=== PATIENT | male | born 1940 | race Caucasian/White ===

== ENCOUNTER 2021-01-12 08:12 | Outpatient (REF) | payer MEDICARE, OTHER, SELFPAY ==
[2021-01-12 09:56] LABS: Alanine Aminotransferase 22 U/L (0-40); Albumin Level 4.5 g/dL (3.5-5.0); Alkaline Phosphatase 64 U/L (39-117); Anion Gap 11 (12-20); Aspartate Amino Transferase 45 U/L (5-37); Bilirubin Total 0.7 mg/dL (0.0-1.0); Blood Urea Nitrogen 33 mg/dL (9-16); Calcium 9.4 mg/dL (8.4-10.2); Carbon Dioxide 31 mmol/L (22-29); Chloride 103 mmol/L (96-108); Estimated Glomerular Filt Rate 53; Glucose Random 92 mg/dL (60-115); Potassium 4.4 mmol/L (3.3-5.1); Sodium 141 mmol/L (135-145); Total Protein 7.5 g/dL (6.5-8.0)
== END 2021-01-12 08:13 | disposition home or self-care (01) ==
LOC: HO.LAB 08:12
PROVIDERS: PCP Internal Medicine; Visit Provider Internal Medicine
DX: K21.9 Gastro-esophageal reflux disease without esophagitis (principal); J45.909 Unspecified asthma, uncomplicated; R79.82 Elevated C-reactive protein (CRP)
CPT/HCPCS: 36415; 80053

== ENCOUNTER 2021-05-31 14:05 | Outpatient (REF) | payer MEDICARE, OTHER, SELFPAY ==
[2021-05-31 14:37] LABS: MANUAL DIFF FLAG NO
[2021-05-31 14:41] LABS: Basophils Percent Auto 0.5 % (0-2); Eosinophils Absolute Auto 0.2 X10*3/uL (0.0-0.4); Eosinophils Percent Auto 2.7 % (0-4); Hematocrit 45.3 % (42-52); Hemoglobin 14.5 g/dl (14.0-18.0); Imm Gran Abs Auto 0.01 X10*3/uL (0.00-0.03); Imm Gran Pct Auto 0.1 % (0.0-0.4); Lymphocytes Absolute Auto 2.3 X10*3/uL (1.2-4.9); Lymphocytes Percent Auto 27.2 % (20-40); Mean Corpuscular Hemoglobin 30.9 pg (27.0-33.0); Mean Corpuscular Volume 96.6 fL (80-98); Mean Platelet Volume 9.6 fL (9.4-12.4); Monocytes Absolute Auto 0.9 X10*3/uL (0.1-1.2); Monocytes Percent Auto 10.4 % (2-11); Neutrophils Absolute Auto 4.9 X10*3/uL (2.0-8.3); Neutrophils Percent Auto 59.1 % (45-73); Platelet Count 223 X10*3/uL (160-400); Red Blood Count 4.69 X10*6/uL (4.60-5.80); Red Cell Distribution Width 14.2 % (11.0-16.0); White Blood Count 8.3 X10*3/uL (4.8-10.8)
[2021-05-31 15:00] LABS: Anion Gap 13 (12-20); Blood Urea Nitrogen 26 mg/dL (9-16); Calcium 9.3 mg/dL (8.4-10.2); Carbon Dioxide 28 mmol/L (22-29); Chloride 106 mmol/L (96-108); Cholesterol 182 mg/dL; Estimated Glomerular Filt Rate 50; Glucose Random 104 mg/dL (60-115); Potassium 4.6 mmol/L (3.3-5.1); Sodium 142 mmol/L (135-145)
[2021-05-31 15:21] LABS: Prostate Specific Antigen 0.98 ng/mL (<0.05-4.0)
== END 2021-05-31 14:06 | disposition home or self-care (01) ==
LOC: HO.LAB 14:05
PROVIDERS: PCP Internal Medicine; Visit Provider Internal Medicine
DX: Z12.5 Encounter for screening for malignant neoplasm of prostate (principal); K21.9 Gastro-esophageal reflux disease without esophagitis; R35.1 Nocturia; N18.9 Chronic kidney disease, unspecified; J45.909 Unspecified asthma, uncomplicated
CPT/HCPCS: 36415; 80048; 82465; 84153; 85025

== ENCOUNTER 2021-12-29 10:46 | Outpatient (REF) | payer MEDICARE, OTHER, SELFPAY ==
[2021-12-29 11:12] LABS: MANUAL DIFF FLAG NO
[2021-12-29 12:07] LABS: Basophils Percent Auto 0.5 % (0-2); Eosinophils Absolute Auto 0.2 X10*3/uL (0.0-0.4); Eosinophils Percent Auto 2.7 % (0-4); Hematocrit 45.2 % (42.0-52.0); Hemoglobin 14.8 g/dl (14.0-18.0); Imm Gran Abs Auto 0.01 X10*3/uL (0.00-0.03); Imm Gran Pct Auto 0.2 % (0.0-0.4); Lymphocytes Absolute Auto 1.6 X10*3/uL (1.2-4.9); Lymphocytes Percent Auto 25.1 % (20-40); Mean Corpuscular HGB Conc 32.7 g/dl (31.0-36.0); Mean Corpuscular Hemoglobin 31.4 pg (27.0-33.0); Mean Corpuscular Volume 95.8 fL (80.0-98.0); Monocytes Absolute Auto 0.8 X10*3/uL (0.1-1.2); Monocytes Percent Auto 12.2 % (2-11); Neutrophils Absolute Auto 3.7 x10*3/uL (2.0-8.3); Neutrophils Percent Auto 59.3 % (45-73); Platelet Count 246 X10*3/uL (160-400); Red Blood Count 4.72 X10*6/uL (4.60-5.80); Red Cell Distribution Width 13.5 % (11.0-16.0); White Blood Count 6.2 X10*3/uL (4.8-10.8)
[2021-12-29 13:38] LABS: Anion Gap 9 (12-20); Carbon Dioxide 31 mmol/L (22-29); Chloride 105 mmol/L (96-108); Estimated Glomerular Filt Rate 52; Potassium 4.4 mmol/L (3.3-5.1); Sodium 141 mmol/L (135-145)
[2021-12-29 17:10] LABS: Blood Urea Nitrogen 23 mg/dL (9-16); Calcium 10.2 mg/dL (8.4-10.2); Glucose Random 94 mg/dL (60-115)
== END 2021-12-29 10:47 | disposition home or self-care (01) ==
LOC: HO.LAB 10:46
PROVIDERS: PCP Internal Medicine; Visit Provider Internal Medicine
DX: K21.9 Gastro-esophageal reflux disease without esophagitis (principal); N18.9 Chronic kidney disease, unspecified
CPT/HCPCS: 36415; 80048; 85025

== ENCOUNTER 2022-08-09 10:52 | Outpatient (REF) | payer MEDICARE, OTHER, SELFPAY ==
[2022-08-09 11:09] LABS: MANUAL DIFF FLAG NO
[2022-08-09 11:16] LABS: Basophils Absolute Auto 0.1 X10*3/uL (0.0-0.2); Basophils Percent Auto 0.6 % (0-2); Eosinophils Absolute Auto 0.1 X10*3/uL (0.0-0.4); Eosinophils Percent Auto 1.5 % (0-4); Hematocrit 43.8 % (42.0-52.0); Imm Gran Abs Auto 0.02 X10*3/uL (0.00-0.03); Imm Gran Pct Auto 0.2 % (0.0-0.4); Lymphocytes Absolute Auto 1.6 X10*3/uL (1.2-4.9); Lymphocytes Percent Auto 18.9 % (20-40); Mean Corpuscular Hemoglobin 30.5 pg (27.0-33.0); Mean Corpuscular Volume 95.4 fL (80.0-98.0); Mean Platelet Volume 9.3 fL (9.4-12.4); Monocytes Percent Auto 11.7 % (2-11); Neutrophils Absolute Auto 5.8 x10*3/uL (2.0-8.3); Neutrophils Percent Auto 67.1 % (45-73); Platelet Count 226 X10*3/uL (160-400); Red Blood Count 4.59 X10*6/uL (4.60-5.80); Red Cell Distribution Width 14.6 % (11.0-16.0); White Blood Count 8.6 X10*3/uL (4.8-10.8)
[2022-08-09 13:08] LABS: Alanine Aminotransferase 19 U/L (0-40); Albumin Level 4.4 g/dL (3.5-5.0); Alkaline Phosphatase 72 U/L (39-117); Anion Gap 15 (12-20); Aspartate Amino Transferase 23 U/L (5-37); Bilirubin Total 0.7 mg/dL (0.0-1.0); Blood Urea Nitrogen 32 mg/dL (9-16); Calcium 9.9 mg/dL (8.4-10.2); Carbon Dioxide 27 mmol/L (22-29); Chloride 105 mmol/L (96-108); Cholesterol 173 mg/dL; Estimated Glomerular Filt Rate 47; Glucose Random 100 mg/dL (60-115); Potassium 4.3 mmol/L (3.3-5.1); Sodium 143 mmol/L (135-145); Total Protein 7.2 g/dL (6.5-8.0)
[2022-08-09 13:16] LABS: Prostate Specific Antigen Scr 0.88 ng/mL (<0.05-4.0)
== END 2022-08-09 10:53 | disposition home or self-care (01) ==
LOC: HO.LAB 10:52
PROVIDERS: PCP Internal Medicine; Visit Provider Internal Medicine
DX: Z12.5 Encounter for screening for malignant neoplasm of prostate (principal); K21.9 Gastro-esophageal reflux disease without esophagitis; N18.9 Chronic kidney disease, unspecified; R35.1 Nocturia
CPT/HCPCS: 36415; 80053; 82465; 84153; 85025

== ENCOUNTER 2022-11-23 10:37 | Outpatient (REF) | payer MEDICARE, OTHER, SELFPAY ==
[2022-11-23 11:48] LABS: Anion Gap 13 (12-20); Blood Urea Nitrogen 29 mg/dL (9-16); Calcium 9.7 mg/dL (8.4-10.2); Carbon Dioxide 29 mmol/L (22-29); Chloride 104 mmol/L (96-108); Estimated Glomerular Filt Rate 45; Glucose Random 115 mg/dL (60-115); Potassium 4.5 mmol/L (3.3-5.1); Sodium 141 mmol/L (135-145)
== END 2022-11-23 10:38 | disposition home or self-care (01) ==
LOC: HO.LAB 10:37
PROVIDERS: PCP Internal Medicine; Visit Provider Internal Medicine
DX: Z13.89 Encounter for screening for other disorder (principal)
CPT/HCPCS: 36415; 80048

== ENCOUNTER 2023-03-01 10:15 | Outpatient (REF) | payer MEDICARE, OTHER, SELFPAY ==
[2023-03-01 11:56] LABS: Anion Gap 10 (12-20); Blood Urea Nitrogen 31 mg/dL (9-16); Calcium 9.5 mg/dL (8.4-10.2); Carbon Dioxide 31 mmol/L (22-29); Chloride 106 mmol/L (96-108); Estimated Glomerular Filt Rate 53; Glucose Random 82 mg/dL (60-115); Sodium 143 mmol/L (135-145)
== END 2023-03-01 10:16 | disposition home or self-care (01) ==
LOC: HO.LAB 10:15
PROVIDERS: PCP Internal Medicine; Visit Provider Internal Medicine
DX: K21.9 Gastro-esophageal reflux disease without esophagitis (principal); N18.9 Chronic kidney disease, unspecified
CPT/HCPCS: 36415; 80048

== ENCOUNTER 2023-10-04 10:32 | Outpatient (REF) | payer MEDICARE, OTHER, SELFPAY ==
[2023-10-04 10:45] LABS: MANUAL DIFF FLAG NO
[2023-10-04 11:43] LABS: Basophils Percent Auto 0.5 % (0-2); Eosinophils Absolute Auto 0.2 X10*3/uL (0.0-0.4); Eosinophils Percent Auto 2.9 % (0-4); Hematocrit 46.2 % (42.0-52.0); Hemoglobin 14.8 g/dl (14.0-18.0); Imm Gran Abs Auto 0.01 X10*3/uL (0.00-0.03); Imm Gran Pct Auto 0.2 % (0.0-0.4); Lymphocytes Absolute Auto 1.6 X10*3/uL (1.2-4.9); Lymphocytes Percent Auto 27.4 % (20-40); Mean Corpuscular Volume 96.7 fL (80.0-98.0); Mean Platelet Volume 9.9 fL (9.4-12.4); Monocytes Absolute Auto 0.8 X10*3/uL (0.1-1.2); Monocytes Percent Auto 13.7 % (2-11); Neutrophils Absolute Auto 3.3 x10*3/uL (2.0-8.3); Neutrophils Percent Auto 55.3 % (45-73); Platelet Count 252 X10*3/uL (160-400); Red Blood Count 4.78 X10*6/uL (4.60-5.80); Red Cell Distribution Width 13.6 % (11.0-16.0); White Blood Count 5.9 X10*3/uL (4.8-10.8)
[2023-10-04 12:11] LABS: Appearance Urine Clear; Color Urine Yellow; Glucose Urine UA Negative (Negative); Leukocyte Esterase Urine Negative (Negative); Nitrite Urine Negative (Negative); PH 5.5 (5.0-9.0); Specific Gravity - Urine 1.015 (1.005-1.025); Urine Blood Negative (Negative); Urine Ketones Negative (Negative); Urine Protein Negative (Neg-Trace)
[2023-10-04 12:19] LABS: Alanine Aminotransferase 22 U/L (0-40); Albumin Level 4.6 g/dL (3.5-5.0); Alkaline Phosphatase 76 U/L (39-117); Anion Gap 12 (12-20); Aspartate Amino Transferase 21 U/L (5-37); Bilirubin Total 0.6 mg/dL (0.0-1.0); Blood Urea Nitrogen 30 mg/dL (9-16); Carbon Dioxide 31 mmol/L (22-29); Chloride 104 mmol/L (96-108); Estimated Glomerular Filt Rate 52; Glucose Random 93 mg/dL (60-115); Potassium 4.2 mmol/L (3.3-5.1); Sodium 143 mmol/L (135-145); Total Protein 7.9 g/dL (6.5-8.0)
[2023-10-04 12:30] LABS: Prostate Specific Antigen 0.99 ng/mL (<0.05-4.0)
== END 2023-10-04 10:33 | disposition home or self-care (01) ==
LOC: HO.LAB 10:32
PROVIDERS: PCP Internal Medicine; Visit Provider Internal Medicine
DX: Z13.89 Encounter for screening for other disorder (principal)
CPT/HCPCS: 36415; 80053; 81003; 84153; 85025

== ENCOUNTER 2024-05-13 07:56 | Outpatient (REF) | payer MEDICARE, OTHER, SELFPAY ==
[2024-05-13 08:09] LABS: MANUAL DIFF FLAG NO
[2024-05-13 08:41] LABS: Basophils Absolute Auto 0.1 X10*3/uL (0.0-0.2); Basophils Percent Auto 0.8 % (0-2); Eosinophils Absolute Auto 0.3 X10*3/uL (0.0-0.4); Eosinophils Percent Auto 3.4 % (0-4); Hematocrit 43.6 % (42.0-52.0); Hemoglobin 14.4 g/dl (14.0-18.0); Imm Gran Abs Auto 0.02 X10*3/uL (0.00-0.03); Imm Gran Pct Auto 0.3 % (0.0-0.4); Lymphocytes Percent Auto 27.4 % (20-40); Mean Corpuscular Hemoglobin 31.4 pg (27.0-33.0); Mean Corpuscular Volume 95.2 fL (80.0-98.0); Mean Platelet Volume 9.6 fL (9.4-12.4); Monocytes Absolute Auto 0.7 X10*3/uL (0.1-1.2); Monocytes Percent Auto 10.1 % (2-11); Neutrophils Absolute Auto 4.3 x10*3/uL (2.0-8.3); Platelet Count 226 X10*3/uL (160-400); Red Blood Count 4.58 X10*6/uL (4.60-5.80); Red Cell Distribution Width 13.9 % (11.0-16.0); White Blood Count 7.3 X10*3/uL (4.8-10.8)
[2024-05-13 09:00] LABS: Cholesterol 178 mg/dL (<200)
== END 2024-05-13 07:57 | disposition home or self-care (01) ==
LOC: HO.LAB 07:56
PROVIDERS: PCP Internal Medicine; Visit Provider Internal Medicine
DX: K21.9 Gastro-esophageal reflux disease without esophagitis (principal); N18.9 Chronic kidney disease, unspecified; J31.0 Chronic rhinitis; Z12.5 Encounter for screening for malignant neoplasm of prostate
CPT/HCPCS: 36415; 82465; 84153; 85025

== ENCOUNTER 2025-10-29 13:00 | Outpatient (AMB) | payer MEDICARE, OTHER, SELFPAY ==
--- NOTE | 2025-10-29 13:03 | A.OFFPC_ITS ---
Vital Signs 10/29/25 13:05 Height 5 ft 2 in Weight 103 lb BMI 18.8 BP 128/72 Blood Pressure Location Rt brachial Position Sitting Pulse 78 Pulse Source Pulse Oximeter Temp 98.2 F Temp Source Temporal Artery Scan Pulse Oximetry (%) 97 Oxygen Delivery Method Room Air Intake Visit Reasons: Re-establish Care/CARIE Croke/[employer] Sdet Required: No Accompanied by: Self / Same As Patient Allergies No Known Allergies Allergy (Verified 10/29/25 13:03) Medication List - Last Reconciled 10/29/25 by Douglas Moore MD No Known Home Meds Tobacco use date assessed: 10/29/25 Fall risk assessment: No Falls in past year Last assessed Fall Risk: 10/29/25 Dental Screening Dental Screen Date: 10/29/25 Did you have a dental visit in the last 12 months?: No Did you have a dental problem in the last 6 months where you did not have access to dental care?: No HPI HPI Comments History of Present Illness Details History of Present Illness The patient is an 84-year-old male presenting for a new patient visit for establishment of care. He does not report any known medical conditions. Past surgical history is notable for an inguinal hernia repair. He reports having environmental allergies affecting his sinuses. He denies any family history of heart disease, diabetes, or cancer. Regarding substance use, he reports minimal alcohol consumption, perhaps once a month, and denies a history of smoking or use of marijuana, heroin, or cocaine. Medical History: - Environmental allergies Surgical History: - Inguinal hernia repair Family History: - Denies family history of heart disease . - Denies family history of diabetes. - Denies family history of cancer. Social History - Alcohol Use: Reports drinking very lit tle, approximately once a month. - Tobacco Use: Denies ever smoking. - Illicit Substance Use: Denies use of m arijuana, heroin, or cocaine. - Living Situation: [facility] at [address] in [place]. [facility] Medical History (Updated 10/29/25 @ 13:24 by Douglas Moore MD) Annual physical exam Family History (Updated 10/29/25 @ 13:12 by Natalia Martinez MA) Mother No problems noted. Father No problems noted. Social History Housing: House Patient Tobacco Use Status: Never used Tobacco e-Cigarette/Vaping Use: Never Used service: No Current occupational status: retired Cognitive needs: No Hearing needs: No Vision needs: Yes (rx glasses) Questionnaire PHQ-9 Over the last 2 weeks, how often have you been bothered by any of the following problems? 1. Little interest or pleasure in doing things: not at all 2. Feeling down, depressed, or hopeless: not at all 3. Trouble falling or staying asleep, or sleeping too much: not at all 4. Feeling tired or having little energy: not at all 5. Poor appetite or overeating: not at all 6. Feeling bad about yourself - or that you are a failure or have let yourself or your family down: not at all 7. Trouble concentrating on things, such as reading the newspaper or watching television: not at all 8. Moving or speaking so slowly that other people could have noticed. Or the opposite - being so fidgety or restless that you have been moving around a lot more than usual: not at all 9. Thoughts that you would be better off or of hurting yourself in some way: not at all Total score: 0 Depression Screening Interpretation: Negative Depression Screening Done: Yes [id number] - PHQ-9 Billing: Yes Source: Developed by Drs. Primitivo Arriola, Niyah Frazier, Deandre David and colleagues, with an educational echo from [employer]. Thrive Questionnaire Date Thrive assessed: 10/29/25 I am a: Patient What is your living situation today?: I have a steady place to live Within the past 12 months, did the food you bought not last and you didn't have the money to get more?: Never true Within the past 12 months, did you worry whether your food would run out before you got money to buy more?: Never true Do you have trouble paying for medicines?: No Do you have trouble getting transportation to medical appointments?: No Do you have trouble paying your heating and electricity bill?: No Do you have trouble taking care of your child, family member or friend?: No Do you have trouble with day-to-day activities such as bathing, preparing meals, shopping, managing finances, etc.?: No Are you currently unemployed and looking for a job?: No Are you interested in more education?: No THRIVE Score: 0 AUDIT C Alcohol Use Questionnaire (AUDIT-C) 1. How often do you have a drink containing alcohol?: Monthly or less 2. How many drinks containing alcohol do you have on a typical day when you are drinking?: 1 or 2 3. How often do you have six or more drinks on one occasion?: Never Total Score: 1 Score Reviewed/Action Taken: Yes NATALIE-7 AMB Questionnaire NATALIE-7 Date NATALIE - 7 assessed: 10/29/25 Feeling nervous, anxious, or on edge: 0 = Not at all Not being able to stop or control worryin = Not at all Worrying too much about different things: 0 = Not at all Trouble relaxin = Not at all Being so restless that it is hard to sit still: 0 = Not at all Becoming easily annoyed or irritable: 0 = Not at all Feeling afraid as if something awful might happen: 0 = Not at all Total NATALIE-7 score (0-4 normal; 5-9 mild; 10-14 moderate; 15-21 severe): 0 Source: Developed by Drs. Primitivo Arriola, Niyah Frazier, Deandre David and colleagues, with an educational echo from [employer]. NATALIE-7 Assessment Billing NATALIE-7 Assessment Tool: NATALIE-7 Assessment 15922 Review of Systems Narrative Review of Systems - All Systems Reviewed: Denies nausea, vomiting, chest pain, shortness of breath, headaches, and vision loss. - Allergic/Immunologic: Reports sinus issues secondary to environmental allergies. All systems reviewed & are unremarkable except as reviewed in HPI and above Physical exam (Primary Care) Vital Signs: Last Vital Signs Temp 98.2 F 10/29/25 13:05 Pulse 78 10/29/25 13:05 BP 128/72 10/29/25 13:05 Pulse Ox 97 10/29/25 13:05 Oxygen Delivery Method Room Air 10/29/25 13:05 BMI result Body Mass Index 18.8 Tobacco/Smoking Status: Tobacco use Status Tobacco use date assessed 10/29/25 10/29/25 13:12 Patient Tobacco Use Status Never used Tobacco 10/29/25 13:12 e-Cigarette/Vaping Use Never Used 10/29/25 13:12 PHQ-9: PHQ-9 Score PHQ-9: Total score 0 10/29/25 13:16 Depression Screening Interpretation: Negative Thrive Assessment: Date of Thrive Assessment Date Thrive assessed 10/29/25 10/29/25 13:12 Narrative Physical Exam General: Alert and oriented, Well nourished, No acute distress. Eye: Pupils are equal, round and reactive to light, Intact accommodation, Extraocular movements are intact, Normal conjunctiva, Vision unchanged. HENT: Normocephalic, Atraumatic, Tympanic membranes are clear, Normal hearing, Oral mucosa is moist, No pharyngeal erythema, Ear canals patent. Respiratory: Lungs CTA bilaterally, No wheeze, Respirations are non-labored. Cardiovascular: Regular rate, Regular rhythm, S1 auscultated, S2 auscultated, No murmur, Good pulses equal in all extremities, Normal peripheral perfusion, No edema. Gastrointestinal: Soft, Non-tender, Non-distended, Normal bowel sounds, No organomegaly. Musculoskeletal: Normal range of motion, Normal strength, No tenderness, No swelling, No deformity, Normal gait. Integumentary: Warm, Dry, [place], Intact. Neurologic: Alert, Oriented, Normal sensory, Normal motor function, No focal defects, Cranial Nerves II-XII are grossly intact, Normal deep tendon reflexes. Psychiatric: Cooperative, Appropriate mood & affect, Normal judgment. Coding Level of Care Code New Pt Prev Care >65yr (81870) Diagnoses Annual physical exam Z00.00 Additional Codes NATALIE-7 Assessment Billing - NATALIE-7 Assessment Tool: NATALIE-7 Assessment 30332 ([id number]) PHQ-9 - 20010 - PHQ-9 Billing: Yes ([id number]) Assessment & Plan Assessment & Plan (1) Annual physical exam: Comment: - The patient is an 84-year-old male establishing care. - He has no active complaints today. - Plan includes ordering routine blood work to establish a baseline. - Follow-up will be in one year for a physical, unless results are abnormal. - Baseline blood work will be obtained. - The patient is advised to return in one year for a physical. - He was also advised to speak with the front office assistant to add an emergency contact to his file Code(s): Z00.00 - Encounter for general adult medical examination without abnormal findings Category: Medical Plan: Health Maintenance: - Recommended baseline blood work. - Advised to follow up in one year for a physical. Patient was informed and verbally consented to the use of an ambient scribe for clinic note documentation during this visit. Vital signs reviewed. Comprehensive history, review of systems, and physical exam completed. Medications, allergies, and problem list reviewed and updated. Counseling provided on nutrition, regular exercise, sleep hygiene, and moderation of alcohol use. Discussed age-appropriate screenings (mammogram, colonoscopy, Pap, bone density) and immunizations (flu, COVID, shingles, Tdap). Screened for depression, fall risk, and home safety; no current concerns. Discussed stress management, dental and vision care, and importance of ongoing preventive follow-up. Routine labs ordered for metabolic and lipid screening. Patient educated on healthy lifestyle and agrees with the plan. Plan I explained to the patient that since this is his first visit, I would be conducting a more detailed history and a brief physical exam. I informed him that I would be ordering baseline blood work to check his overall health, which he agreed to. I advised him that he could get his blood drawn at the back of the hospital without any paperwork and that I would call him if any results were abnormal. We agreed on a follow-up appointment in one year for a physical. I also directed him to the front office assistant to add an emergency call or contact centre operator to his file as requested. Orders: Orders Comprehensive Met. Panel Today Z00.00 - Encounter for general adult medical examination without abnormal findings Hemoglobin A1c Today Z00.00 - Encounter for general adult medical examination without abnormal findings Microalbumin, Random (w Creat) Today Z00.00 - Encounter for general adult medical examination without abnormal findings Vitamin D 25-OH Total Today Z00.00 - Encounter for general adult medical examination without abnormal findings Complete Blood Count Auto Diff Today Z00.00 - Encounter for general adult medi zhang examination without abnormal findings Lipid Panel Today Z00.00 - Encounter for general adult medical examination without abnormal findings TSH reflex Free T4 Today Z00.00 - Encounter for general adult medical examination without abnormal findings Patient Instructions: - Go to the back of the hospital to have your blood drawn today. - You do not need to take any paperwork with you for the blood test. - The office will call you if any of your blood work results are abnormal. - Please return in one year for your next physical exam. - Inform the staff at the front office assistant that you would like to add a call or contact centre operator to your file.
[2025-10-29 13:05] VITALS: BP 128/72; PULSE 78; TEMP 36.8; O2SAT 97; BMI 18.8
--- OUTSIDE RECORDS SUMMARY | 2025-10-29 20:01 | XMS_ITS | Patient Health Record ---
Author Organization [facility] Address [address] [place] [address] Care Team Providers Care Forensic Analyst Name Role Phone Christophe (RETIRED) Pb LAGUERRE Primary Care Provide r Primitivo Mayfield Unavailable [phone] Reason For Referral No Information Medications Medication SIG (Take, Route, Fr equency, Duration) Notes Start Date End Date Status Multi Vitamin/Minerals Active Omeprazole 20mg Acti ve Social History Social History Additional Details Category Social Info Options Details Miscellaneous: Marital status: single Occupation: retired Section Notes: Nonsmoker; no alcohol Nonsmoker; no alcohol Problems Problem Type SNOMED Code ICD Code Onset Dates Problem Status W/U Status Risk Notes Problem Colon cancer screening (792804390) Colon cancer screening (V76.51) Active confirmed Problem Gastroesophageal reflux disease (363111511) GERD (gastroesophageal reflux disease) (530.81) Active confirmed Problem Abnormal upper gastrointestinal barium series (793.4) Active confirmed Plan Of Treatment Future Test Test Name Order Date UPPER GI ENDOSCOPY 04/29/2014 Insurance Providers Payer Name Payer Address Payer Phone Subscriber Number Group Number Insured Name Patient Relationship to Insured Coverage Start Date Coverage End Date MEDICARE OF [place] [address] [place] [address] [id number] MEREDITH GUPTA Self - patient is the insured [employer] [address] [place] [address] [phone] [id number] MEREDITH GUPTA Self - patient is the insured Medical (General) History Medical History History ICD Code UGI bleed in 1998 with a duo denal ulcer and mild esophagitis--EGD neg. for H.pylori and neg. for Platt's esophagus Large sliding type hiatal hernia seen on an UGI series in 2001 Neg colonoscopy in 12/2002 except for div erticulosis and internal hemorrhoids Denies [place],DM,CVA,Lung disease,renal dise ase Negative screening colonosco py in 04/2014 except for diverticulosis and small internal hemorrhoids Surgical History Surgery Date(Month/Year) hernia repair cataract-lens implants 2011
== END 2025-10-29 13:24 | disposition home or self-care (01) ==
PROVIDERS: PCP Student in an Organized Health Care Education/Training Program; Visit Provider Student in an Organized Health Care Education/Training Program
DX: Z00.00 Encounter for general adult medical examination without abnormal findings (principal)

== ENCOUNTER → 2025-10-29 13:00 | Outpatient (BNVA) | payer MEDICARE, OTHER, SELFPAY | PROVIDERS: PCP Internal Medicine; Visit Provider Student in an Organized Health Care Education/Training Program | DX: Z00.00 Encounter for general adult medical examination without abnormal findings (principal); Z13.31 Encounter for screening for depression; Z13.39 Encounter for screening examination for other mental health and behavioral disorders | CPT/HCPCS: 96127; 99387 ==

== ENCOUNTER 2025-10-30 10:12 | Outpatient (REF) | payer MEDICARE, OTHER, SELFPAY ==
[2025-10-30 10:25] LABS: MANUAL DIFF FLAG NO
[2025-10-30 10:36] LABS: Hematocrit 44.4 % (42.0-52.0); Hemoglobin 14.6 g/dl (14.0-18.0); Imm Gran Abs Auto 0.02 X10*3/uL (0.00-0.03); Imm Gran Pct Auto 0.2 % (0.0-0.4); Lymphocytes Absolute Auto 1.6 X10*3/uL (1.2-4.9); Mean Corpuscular HGB Conc 32.9 g/dl (31.0-36.0); Mean Corpuscular Hemoglobin 31.3 pg (27.0-33.0); Mean Corpuscular Volume 95.1 fL (80.0-98.0); NRBC Abs Auto 0.000 X10*3/uL (0.0-0.012); NRBC Pct Auto 0.0 /100WBC (0.0-0.2); Platelet Count 252 X10*3/uL (160-400); Red Blood Count 4.67 X10*6/uL (4.60-5.80); White Blood Count 8.3 X10*3/uL (4.8-10.8)
[2025-10-30 11:19] LABS: Alanine Aminotransferase 19 U/L (0-40); Albumin Level 4.9 g/dL (3.5-5.0); Alkaline Phosphatase 88 U/L (39-117); Anion Gap 11 (12-20); Aspartate Amino Transferase 29 U/L (5-37); Blood Urea Nitrogen 29 mg/dL (9-16); Calcium 9.6 mg/dL (8.4-10.2); Carbon Dioxide 30 mmol/L (22-29); Chloride 104 mmol/L (96-108); Cholesterol 182 mg/dL (<200); Estimated Glomerular Filt Rate 53; HDL Cholesterol 56 mg/dL (>40); Potassium 4.5 mmol/L (3.3-5.1); Sodium 140 mmol/L (135-145); Total Protein 7.9 g/dL (6.5-8.0); Triglycerides 72 mg/dL (<150)
[2025-10-30 11:30] LABS: Microalbum/Creatinine Ratio Ur 44.4 ug/mg cr (<30)
[2025-10-30 12:26] LABS: Free T4 (Free Thyroxine) 0.88 ng/dL (0.71-1.85)
== END 2025-10-30 10:13 | disposition home or self-care (01) ==
LOC: HO.LAB 10:12
PROVIDERS: PCP Student in an Organized Health Care Education/Training Program; Visit Provider Student in an Organized Health Care Education/Training Program
DX: Z00.00 Encounter for general adult medical examination without abnormal findings (principal); Z13.0 Encounter for screening for diseases of the blood and blood-forming organs and certain disorders involving the immune mechanism; Z13.29 Encounter for screening for other suspected endocrine disorder; Z13.1 Encounter for screening for diabetes mellitus; Z13.21 Encounter for screening for nutritional disorder; Z13.6 Encounter for screening for cardiovascular disorders
CPT/HCPCS: 36415; 80053; 80061; 82043; 82306; 82570; 83036; 84439; 84443; 85025